=== PATIENT | male | born 1985 | race Caucasian/White ===

== ENCOUNTER 2017-05-09 19:09 | Emergency (ER) | payer OTHER ==
[~2017-05-09] VITALS: Ht 193 cm; Wt 104.3 kg
[~2017-05-09 19:09] MED LIST: ALBU90OI INH; ALBU90OI61 INH; AMOX250 PO; AMOX500 PO; AZIT250 PO; Augmentin 875-1 EACH PO; BUSP10 PO; CLIN300 PO; DAYQUIL; ERYT.5TO LEFTEYE; HYDCOR2.5C PR; HYDMETSO BOTHEYES; IBUP600 PO; IBUP800 PO; Klonopin1 MG PO; MIRT15; NYQUIL; Norco 5-325 Ta1 EACH PO; OXYACE5T PO; PENVK500 PO; PRED20 PO; Prozac40 MG PO; TRAM50 PO; TRAZ100 PO; ZICAM; Zithromax250 MG PO; Zofran Odt4 MG SL
[2017-05-09] MEDS ORDERED: MIRT30 PO (19:22)
[2017-05-09] MEDS ORDERED: (None)20 M1 PO (20:41)
[2017-05-09] MEDS ORDERED: BENZ100A PO (20:41)
[2017-05-10] MEDS ORDERED: ALBU90OI INH (20:24)
== END 2017-05-09 20:57 | disposition home or self-care (01) ==
LOC: ER 19:09
DX: J45.901 Unspecified asthma with (acute) exacerbation (principal); Z79.899 Other long term (current) drug therapy; F17.210 Nicotine dependence, cigarettes, uncomplicated
CPT/HCPCS: 94640; 99283

== ENCOUNTER 2017-05-10 20:04 | Emergency (ER) | payer OTHER ==
[~2017-05-10] VITALS: Ht 162.6 cm; Wt 104.3 kg
[~2017-05-10 20:04] MED LIST changes: +(None)20 M1 PO; +BENZ100A PO; +MIRT30 PO
[2017-05-10] MEDS ORDERED: ALBU90OI INH (20:24)
== END 2017-05-10 20:56 | disposition home or self-care (01) ==
LOC: ER 20:04
DX: J45.901 Unspecified asthma with (acute) exacerbation (principal); F17.210 Nicotine dependence, cigarettes, uncomplicated
CPT/HCPCS: 94640; 99283

== ENCOUNTER 2017-10-26 13:36 | Emergency (ER) | payer OTHER ==
[~2017-10-26] VITALS: Ht 193 cm; Wt 99.8 kg
[2017-10-26] MEDS ORDERED: CLOBET30L TOP (14:16)
== END 2017-10-26 14:28 | disposition home or self-care (01) ==
LOC: ER 13:36
DX: L23.7 Allergic contact dermatitis due to plants, except food (principal); B35.6 Tinea cruris; F17.210 Nicotine dependence, cigarettes, uncomplicated
CPT/HCPCS: 96372; 99282; J2920; J3301

== ENCOUNTER 2017-11-18 10:44 | Emergency (ER) | payer OTHER ==
[~2017-11-18] VITALS: Ht 193 cm; Wt 90.7 kg
[~2017-11-18 10:44] MED LIST changes: +CLOBET30L TOP
[2017-11-18] MEDS ORDERED: Cleocin HCl300 MG PO (11:55)
== END 2017-11-18 12:03 | disposition home or self-care (01) ==
LOC: ER 10:44
DX: L01.00 Impetigo, unspecified (principal); J45.909 Unspecified asthma, uncomplicated; F17.210 Nicotine dependence, cigarettes, uncomplicated; Z79.899 Other long term (current) drug therapy
CPT/HCPCS: 99282

== ENCOUNTER 2018-01-03 11:16 | Emergency (ER) | payer OTHER ==
[~2018-01-03] VITALS: Ht 182.9 cm; Wt 86.2 kg
[~2018-01-03 11:16] MED LIST changes: +Cleocin HCl300 MG PO
[2018-01-03] MEDS ORDERED: Bactrim Ds Tab1 EACH PO (12:44)
[2018-01-06 22:09] LABS: CHLAMYDIA TRACHOMATIS, NAA Negative (Negative); NEISSERIA GONORRHOEAE, NAA Negative (Negative)
== END 2018-01-03 12:52 | disposition home or self-care (01) ==
LOC: ER 11:16
PROVIDERS: Physician Assistant
DX: L02.31 Cutaneous abscess of buttock (principal); L02.416 Cutaneous abscess of left lower limb; L02.415 Cutaneous abscess of right lower limb; L02.512 Cutaneous abscess of left hand; J45.909 Unspecified asthma, uncomplicated; F17.210 Nicotine dependence, cigarettes, uncomplicated
CPT/HCPCS: 87070; 87077; 87147; 87186; 87205; 87491; 87591; 99283

== ENCOUNTER 2018-03-13 10:18 | Emergency (ER) | payer OTHER ==
[~2018-03-13] VITALS: Ht 193 cm; Wt 95.2 kg
[~2018-03-13 10:18] MED LIST changes: +Bactrim Ds Tab1 EACH PO
[2018-03-13] MEDS ORDERED: IBUP800 PO (12:16)
== END 2018-03-13 12:28 | disposition home or self-care (01) ==
LOC: ER 10:18
DX: S80.12XA Contusion of left lower leg, initial encounter (principal); X58.XXXA Exposure to other specified factors, initial encounter; Z79.899 Other long term (current) drug therapy; J45.909 Unspecified asthma, uncomplicated; F17.210 Nicotine dependence, cigarettes, uncomplicated
CPT/HCPCS: 93971; 99283-25

== ENCOUNTER 2018-06-10 09:46 | Emergency (ER) | payer OTHER ==
[~2018-06-10] VITALS: Ht 190.5 cm; Wt 104.3 kg
[2018-06-10] MEDS ORDERED: Keflex500 MG PO (10:57)
[2018-06-10] MEDS ORDERED: Permethrin60 GM TOP (10:58)
== END 2018-06-10 11:09 | disposition home or self-care (01) ==
LOC: ER 09:46
DX: T33.531D Superficial frostbite of right finger(s), subsequent encounter (principal); X31.XXXD Exposure to excessive natural cold, subsequent encounter; F17.210 Nicotine dependence, cigarettes, uncomplicated
CPT/HCPCS: 99283

== ENCOUNTER 2018-08-07 12:12 | Emergency (ER) | payer OTHER ==
[~2018-08-07] VITALS: Ht 193 cm; Wt 99.8 kg
[~2018-08-07 12:12] MED LIST changes: +Keflex500 MG PO; +Permethrin60 GM TOP
[2018-08-07] MEDS ORDERED: Bactrim Ds Tab1 EACH PO (13:02)
== END 2018-08-07 13:08 | disposition home or self-care (01) ==
LOC: ER 12:12
DX: L02.416 Cutaneous abscess of left lower limb (principal); F17.210 Nicotine dependence, cigarettes, uncomplicated
CPT/HCPCS: 99282

== ENCOUNTER 2018-08-09 15:35 | Emergency (ER) | payer OTHER ==
[~2018-08-09] VITALS: Ht 193 cm; Wt 99.8 kg
[2018-08-09] MEDS ORDERED: IBUP800 PO (16:03)
[2018-08-09] MEDS ORDERED: CEPH500 PO (16:03)
== END 2018-08-09 16:14 | disposition home or self-care (01) ==
LOC: ER 15:35
DX: L02.416 Cutaneous abscess of left lower limb (principal); L03.116 Cellulitis of left lower limb; J45.909 Unspecified asthma, uncomplicated; F17.210 Nicotine dependence, cigarettes, uncomplicated
CPT/HCPCS: 10060; 99283-25

== ENCOUNTER 2018-09-07 14:37 | Emergency (ER) | payer OTHER ==
[~2018-09-07] VITALS: Ht 193 cm; Wt 99.8 kg
[~2018-09-07 14:37] MED LIST changes: +CEPH500 PO
[2018-09-07] MEDS ORDERED: MIRT30 PO (14:51)
[2018-09-07] MEDS ORDERED: KETO10 PO (15:53)
[2018-09-07] MEDS ORDERED: Cyclobenzaprine5 MG PO (15:53)
== END 2018-09-07 16:08 | disposition home or self-care (01) ==
LOC: ER 14:37
DX: S39.012A Strain of muscle, fascia and tendon of lower back, initial encounter (principal); W01.0XXA Fall on same level from slipping, tripping and stumbling without subsequent striking against object, initial encounter; Z79.899 Other long term (current) drug therapy; J45.909 Unspecified asthma, uncomplicated; F17.210 Nicotine dependence, cigarettes, uncomplicated
CPT/HCPCS: 71101; 99283

== ENCOUNTER 2018-09-21 15:29 | Emergency (ER) | payer OTHER ==
[~2018-09-21] VITALS: Ht 193 cm; Wt 104.3 kg
[~2018-09-21 15:29] MED LIST changes: +Cyclobenzaprine5 MG PO; +KETO10 PO
[2018-09-21] MEDS ORDERED: Monodox100 MG PO (16:15)
[2018-09-21] MEDS ORDERED: CEPH500 PO (16:15)
== END 2018-09-21 16:19 | disposition home or self-care (01) ==
LOC: ER 15:29
DX: L03.116 Cellulitis of left lower limb (principal); L03.115 Cellulitis of right lower limb; B95.62 Methicillin resistant Staphylococcus aureus infection as the cause of diseases classified elsewhere; Z79.899 Other long term (current) drug therapy; J45.909 Unspecified asthma, uncomplicated; F17.210 Nicotine dependence, cigarettes, uncomplicated
CPT/HCPCS: 99282

== ENCOUNTER 2021-02-18 10:49 | Emergency (ER) | payer OTHER ==
[~2021-02-18] VITALS: Ht 190.5 cm; Wt 109.8 kg
[~2021-02-18 10:49] MED LIST changes: +Monodox100 MG PO
[2021-02-18] MEDS ORDERED: Vibramycin100 MG PO (11:32)
== END 2021-02-18 11:40 | disposition home or self-care (01) ==
LOC: ER 10:49
DX: L02.416 Cutaneous abscess of left lower limb (principal); J45.909 Unspecified asthma, uncomplicated; F17.210 Nicotine dependence, cigarettes, uncomplicated
CPT/HCPCS: 99282

== ENCOUNTER → 2021-03-09 | Outpatient (CLI) | payer OTHER ==
[~2021-03-09] MED LIST changes: +Vibramycin100 MG PO
== END | disposition home or self-care (01) ==
LOC: LAB SHORT 18:29
DX: L02.511 Cutaneous abscess of right hand (principal)
CPT/HCPCS: 87070; 87075; 87077; 87147; 87186; 87205

== ENCOUNTER 2021-07-12 05:12 | Emergency (ER) | payer OTHER ==
[~2021-07-12] VITALS: Ht 190.5 cm; Wt 108.9 kg
[~2021-07-12 05:12] MED LIST changes: +Cleocin HCl150 MG PO
[2021-07-12] MEDS ORDERED: REMERON PO (05:25)
[2021-07-12] MEDS ORDERED: Floxin10 ML RIGHTEYE (06:38)
== END 2021-07-12 07:17 | disposition home or self-care (01) ==
LOC: ER 05:12
DX: H16.001 Unspecified corneal ulcer, right eye (principal); H20.9 Unspecified iridocyclitis; F17.210 Nicotine dependence, cigarettes, uncomplicated
CPT/HCPCS: A9270

== ENCOUNTER 2021-12-27 04:22 | Emergency (ER) | payer OTHER ==
[~2021-12-27] VITALS: Ht 190.5 cm; Wt 108.9 kg
[~2021-12-27 04:22] MED LIST changes: +Floxin10 ML RIGHTEYE; +REMERON PO
[2021-12-27 06:40] LABS: Hematocrit 42.5 % (37.0-53.0); Mean Corpuscular HGB Conc 32.9 g/dL (31.5-36.5); Mean Corpuscular Volume 94 fL (80-100); Mean Platelet Volume 9.1 fL (9.1-12.4); Platelet Count 275 K/mm3 (150-400); RDW Coefficient Variation 12.7 % (11.7-14.2); RDW Standard Deviation 43.9 fL (35.1-46.3); Red Blood Cell Count 4.51 M/mm3 (4.30-5.90); White Blood Cell Count 8.62 K/mm3 (4.00-11.30)
[2021-12-27 06:55] LABS: Bun/Creatinine Ratio 23.9 (12.0-20.0); C-REACTIVE PROTEIN, EXT RANGE 1.33 mg/dL (0.000-0.300); Calcium, Blood 9.2 mg/dL (8.5-10.1); Creatinine, Blood 0.84 mg/dL (0.60-1.20); Potassium, Blood 4.4 mmol/L (3.5-5.5)
[2021-12-27 07:30] LABS: BASOPHILS ABSOLUTE MAN 0.08 K/mm3 (0.00-0.23); BASOPHILS PERCENT MAN 1 % (0-2); EOSINOPHILS ABSOLUTE MAN 0.43 K/mm3 (0.00-0.68); EOSINOPHILS PERCENT MAN 5 % (0-6); LYMPHOCYTES ABSOLUTE MAN 1.46 K/mm3 (0.84-5.20); LYMPHOCYTES PERCENT MAN 17 % (21-46); MONOCYTES ABSOLUTE MAN 0.51 K/mm3 (0.16-1.47); MONOCYTES PERCENT MAN 6 % (4-13); NEUTROPHILS ABSOLUTE MAN 6.12 K/mm3 (1.96-9.15); SEG NEUTROPHILS PERCENT MAN 71 % (41-73); TOTAL CELLS COUNTED 100
[2021-12-27] MEDS ORDERED: Clindamycin HC150 MG PO (08:22)
== END 2021-12-27 10:28 | disposition home or self-care (01) ==
LOC: ER 04:22
PROVIDERS: Student in an Organized Health Care Education/Training Program
DX: L03.115 Cellulitis of right lower limb (principal); J45.909 Unspecified asthma, uncomplicated; F17.210 Nicotine dependence, cigarettes, uncomplicated; Z79.899 Other long term (current) drug therapy
CPT/HCPCS: 36415; 73701; 80048; 85025; 85651; 86140; J0696; J3370; J7050; Q9967

== ENCOUNTER 2022-07-01 12:41 | Emergency (ER) | payer OTHER ==
[~2022-07-01] VITALS: Ht 190.5 cm; Wt 108.9 kg
[~2022-07-01 12:41] MED LIST changes: +Clindamycin HC150 MG PO
[2022-07-01 13:25] VITALS: BP 114/82
== END 2022-07-01 15:10 | disposition home or self-care (01) ==
LOC: ER 12:41
DX: S91.011A Laceration without foreign body, right ankle, initial encounter (principal); F17.210 Nicotine dependence, cigarettes, uncomplicated; W26.8XXA Contact with other sharp object(s), not elsewhere classified, initial encounter
CPT/HCPCS: 12002; 99282-25